=== PATIENT | male | born 1955 | race Caucasian/White ===

== ENCOUNTER 2017-10-15 06:54 | Inpatient (IN) | payer BC ==
[~2017-10-15 06:54] MED LIST: CEFAZOLIN 2 Gram 2 GM/50 ML BAG IVPB ONE; CELECOXIB 100 MG CAPSULE PO ONE; FAMOTIDINE 20MG TABLET PO ONE; MECLIZINE 25 MG TABLET PO ONE; METOCLOPRAMIDE 10 MG TABLET PO ONE; VANCOMYCIN HCL 1,000 MG in DEXTROSE 5 % IN WATER 250 ML IVPB ONE
[2017-10-15 08:26] LABS: ABO GROUP O; ANTIBODY SCREEN NEGATIVE (NEGATIVE); RH TYPE NEGATIVE
[2017-10-15] MEDS ORDERED: NALOXONE 0.4 MG/1 ML VIAL IVP PRN (10:42)
[2017-10-15] MEDS ORDERED: BISACODYL 10 MG SUPP RC PRN (10:42)
[2017-10-15] MEDS ORDERED: ACETAMINOPHEN W/ CODEINE 300MG/60MG TABLET PO PRN ×2 (10:42)
[2017-10-15] MEDS ORDERED: HYDROCODONE/APAP 10/325 TABLET PO PRN (10:42)
[2017-10-15] MEDS ORDERED: AL HYDROX/MAG HYDROX 30ML UD PO PRN (10:42)
[2017-10-15] MEDS ORDERED: HYDROMORPHONE HCL 2 MG/ML VIAL IM PRN (10:42)
[2017-10-15] MEDS ORDERED: TRAMADOL HCL 50 MG TABLET PO PRN (10:42)
[2017-10-15] MEDS ORDERED: DIPHENHYDRAMINE HCL 25 MG CAPSULE PO PRN (10:42)
[2017-10-15] MEDS ORDERED: KETOROLAC 30 MG/ML VIAL IVP PRN ×2 (10:42)
[2017-10-15] MEDS ORDERED: ONDANSETRON HCL IV 4 MG/2 ML VIAL IVP PRN (10:42)
[2017-10-15] MEDS ORDERED: ZOLPIDEM TARTRATE 5 MG TABLET PO PRN (10:42)
[2017-10-15] MEDS ORDERED: ACETAMINOPHEN 325 MG TAB PO PRN (10:42)
[2017-10-15] MEDS ORDERED: MAGNESIUM HYDROXIDE 30 ML UDC PO PRN (10:42)
[2017-10-15] MEDS ORDERED: PATIENT OWN MED: PROAIR HFA INH PRN (11:01)
[2017-10-15] MEDS ORDERED: FLU VAC QS 2017-18 (INPT, 6MO+) 60MCG/0.5ML IM ONE (12:09)
[2017-10-15] MEDS ORDERED: PNEUM 23-VAL ADULT IM ONE (12:09)
[2017-10-15] MEDS: POTASSIUM CHLORIDE/D5-0.9%NACL 20 MEQ/1,000 ML BAG IV SCH ×2 (12:58→21:08)
--- NOTE | 2017-10-15 14:51 | Rehab Evaluation ---
Patient Information - Patient Information Diagnosis: DJD L hip Ordered Treatment: PT Evaluate and Treat Status: Initial Evaluation Surgery: Yes (Total Hip Arthroplasty) Date of Surgery: 10/15/17 Past Medical/Surgical Hx: PAST MEDICAL/SURGICAL HISTORY Past Surgical History dupuytrens sx left hands; hernia Umbilical repair w mesh; colonoscopy; cardiac catheterization December 2016-no heart issues PMH - Respiratory Hx Respiratory Disorders Yes Hx Chronic Obstructive Yes Pulmonary Disease (COPD) Hx Dyspnea Yes: exertional Hx of SOB Yes PMH - Cardiovascular Hx Cardiovascular Disorders Yes Hx Cardiac Catheterization Yes: got dizzy at work sight-"I was dehydrated "- no heart issues Exercise Tolerance Fair PMH - Neuro Hx Neurological Disorders Yes Hx Dizziness Yes: was dehydrated Spring 2016 PMH - GI Hx Gastrointestinal Disorders Yes Hx Gastroesophageal Reflux Yes PMH - Hx Genitourinary Disorders No PMH - Endocrine Hx Endocrine Disorders No PMH - Musculoskeletal Hx Musculoskeletal Disorders Yes Hx Arthritis Yes: hands/hip PMH - Psych Hx Psychiatric Problems No PMH - Hematology/Oncology Hx Hematology/Oncology No Disorders Premorbid Status: Detail (The patient was prior to surgery independent with all mobility.) Social History: Detail (The patient states that he lives with his spouse in a single-story home with 2 steps to enter and 2 railings. The patient states that he has two bathrooms, one with a walk-in shower and a tub/shower combo, but was unsure which he was going to use. 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 The patient has his own two wheeled walker , and has a toilet riser for the bathroom.) Precautions: [place], Other (Total Hip Arthroplasty precautions and WBAT on left lower extremity) - Time With Patient Total Time Spent With Patient (Min): 30 Treatment Procedures: Detail (Gait Training) Subjective Information - Subjective Information Per Patient (The patient stated he was slightly light headed at the beginning of treatment.) Objective Data - Pain Pain Present: Yes Pain Intensity: 1 Pain Scale Used: Numeric (1 - 10) - Mental Status Patient Orientation: Oriented x3 - Visual Perception Appears within normal limits for therapeutic activities - ROM Within normal limits (Left Hip was within IRIS precautions) - Strength/Tone Within normal limits (L Hip was WFL as he could lift his leg to transfer back into bed) - Bed Mobility Needs Assist (Supine to sit - minumum assist Sit to Supine - Independent) - Transfers Independent (Sit to Stand - Independent Toilet Transfer - Required verbal cues to push up for toilet seat handles, and not use the walker) - Balance Balance Sitting: Good Balance Standing: Good (Patient was able to stand while don/doff underwear) - Sensation Intact - Gait Detail (WBAT on left - Ambulated with 2-wheeled walker for a distance of 37 feet with CGA for safety.) Therapy Assessment - Therapy Assessment Detail (The patient was independet with bed mobility, gait, and followed IRIS precautions well. The patient is expected to progress well with therapy.) Patient Education - Patient Education Teaching Topic: Precautions (IRIS precautions were reviewed and patient was able to recall precautions without cuing.) Response: Verbalize Understanding Teaching Method: Discussion Teaching Recipient: Patient Barriers To Learning: None Problem List - Problem List Physical Therapy Problem List: Detail (Non-ambulatory on stairs Decreased strength as to be expected s/p IRIS) Goals - Goals Physical Therapy Goals: 1) Supervision with 3 steps WBAT on left. 2) Independent with gait over level surfaces with 2 wheeled walker for household distances WBAT on left. 3) Independent with IRIS exercises as part of HEP. Prognosis - Prognosis Good Plan - Plan Physical Therapy Plan: PT 1-2x/day for gait training and instruction in HEP until inpatient PT goals are met.
--- NOTE | 2017-10-15 15:14 | Operative Note ---
DATE OF SURGERY: 10/15/17 PREOPERATIVE DIAGNOSIS: END-STAGE ARTHROSIS OF THE LEFT HIP. POSTOPERATIVE DIAGNOSIS: END-STAGE ARTHROSIS OF THE LEFT HIP. PROCEDURE: CEMENTLESS LEFT TOTAL HIP ARTHROPLASTY USING PEREZ-NEPHEW COMPONENTS WITH A SIZE 58 NO-HOLE REFLECTION CUP WITH A 32 MM DIAMETER, 35-DEGREE OFFSET LINER, A SIZE 15 CEMENTLESS [place] STEM STANDARD NECK LENGTH WITH A +0, 32 MM DIAMETER OXINIUM HEAD. STAFF SURGEON: DR. HORN. ANESTHESIA: SPINAL. PREPARATION: CHLORAPREP. INDIVIDUAL CONSIDERATION: NONE. PROCEDURE: The patient was taken to the Operating Room and placed supine on the operating room table. He had a successful induction of a spinal anesthetic. He was then placed on his side, left side up, and his left leg and hip were prepped and draped in the usual fashion. The patient had direct posterior approach to the hip. Sharp dissection was carried down through the skin and subcutaneous tissues. Small veins were coagulated with a Bovie. The tensor gluteal fascia was opened along the entire length of the incision and deep retractors were placed. Short external rotators were identified, piriformis fossa and removed exposing the posterior capsule. The posterior capsulectomy was performed. The hip was dislocated posteriorly. He had exposed bone throughout. Femoral neck cut was then made about a little above a fingerbreadth above the lesser troch with an oscillating saw. A rim capsulectomy was performed. Starting with a 47 mm reamer to medialize the medial wall, I reamed the introitus, which was 57 for a 58 cup. I slightly under -reamed to 56. I then impacted a size 58 no-hole reflection cup and 20 degrees of forward flexion and 40 degrees of abduction using the extra-articular alignment guide and bony landmarks. There was solid cementless fixation. After irrigation, the center cap screw was placed and then I impacted a 35-degree offset liner, a 32 mm diameter Highly Crosslink with the offset posteriorly and inferiorly and this gave excellent stable acetabular construct and this was packed off. The proximal femur was delivered into the wound and box cutting osteotome was used to remove proximal metaphyseal bone. Mid stem reaming was done to a size 15 and started feeling cortex between 13 and 14, and broached a 15. I dialed the anteversion at about 30 degrees, which followed it's natural anteversion angle, calcar reamed, and I could get it to reduce well with normal shuck and stability with a +0 standard offset neck. I had actually absolute stability, full anterior stability with full extension external rotation. I could flex him up maximally and internally rotate to 90 and the hip was still stable. I went ahead and removed the trial, irrigated everything and impacted a size 15 [place] stem standard neck length with solid cementless fixation and solid calcar contact. Again after irrigation and drying the [place] T[place], I impacted a +0, 32 mm diameter Oxinium head on the Sierra Taper the implant after irrigation reduced this in similar stability. Sciatic nerve was inspected and found to be completely intact. Hemostasis was obtained with the Bovie. The capsule was then closed with a running #2 Quill. The patient did receive a gram of Tranexamic Acid preoperatively. I mixed a gram of Tranexamic Acid with 30 mL of saline and placed this deep to the fascia. After the fascia was closed, the subcut was closed in layers with running #0 Quill, skin was closed with misael. I did infiltrate the skin with 0.75% Marcaine with Epinephrine and a sterile [place] compressive Aquacel-type dressing was applied. The patient tolerated the procedure well. Needle and sponge counts were correct. Estimated blood loss was minimal and he was taken back to Recovery in good condition. There were no complications. JOB NUMBER: [id number] MTDD
[2017-10-15] MEDS ORDERED: TRANEXAMIC ACID 1,000 MG/10 ML ML IV ONE (15:38)
[2017-10-15] MEDS ORDERED: BUPIVACAINE 0.75% W/EPI MPF 30ML VIAL IVP ONE (15:38)
[2017-10-15] MEDS: CEFAZOLIN 2 Gram 2 GM/50 ML BAG IVPB SCH (16:11)
[2017-10-15] MEDS: HYDROCODONE/APAP 10/325 TABLET PO PRN ×2 (17:36→22:01)
[2017-10-15] MEDS: DULERA INH SCH (19:40)
[2017-10-15] MEDS: DOCUSATE SODIUM 100 MG CAPSULE PO SCH (21:08)
[2017-10-15] MEDS ORDERED: PATIENT OWN MED: MONTELUKAST 10 MG PO SCH (22:00)
[2017-10-16] MEDS: CEFAZOLIN 2 Gram 2 GM/50 ML BAG IVPB SCH ×2 (00:34→09:23)
[2017-10-16] MEDS: DULERA INH SCH (05:51)
[2017-10-16] MEDS: HYDROCODONE/APAP 10/325 TABLET PO PRN ×3 (05:55→14:55)
[2017-10-16 06:34] LABS: HEMATOCRIT 41.4 % (42.0-52.0); HEMOGLOBIN 13.3 gm/dl (14.0-18.0)
[2017-10-16 06:47] LABS: BLOOD UREA NITROGEN 12 mg/dL (6-20); CREATININE 0.8 mg/dL (0.7-1.2); EST GLOMERULAR FILTRATION RATE > 60 mL/min; GLUCOSE,RANDOM 126 mg/dL (74-109)
[2017-10-16] MEDS ORDERED: PATIENT OWN MED: OMEPRAZOLE 20 MG PO SCH (07:00)
[2017-10-16] MEDS ORDERED: HYDROMORPHONE HCL 2 MG/ML VIAL IV ONE (08:32)
[2017-10-16] MEDS ORDERED: PROPOFOL 10 MG/ML VIAL IV ONE (08:32)
[2017-10-16] MEDS ORDERED: *PACU ONLY* KETAMINE HCL 10 MG/ML (20ML) VIAL IV ONE (08:32)
[2017-10-16] MEDS ORDERED: MIDAZOLAM HCL 2MG/2ML VIAL IV ONE (08:32)
[2017-10-16] MEDS ORDERED: KETOROLAC 30 MG/ML VIAL IVP ONE (08:32)
[2017-10-16] MEDS ORDERED: FENTANYL PF 100MCG/2ML VIAL IV ONE (08:32)
[2017-10-16] MEDS: DOCUSATE SODIUM 100 MG CAPSULE PO SCH (09:23)
[2017-10-16] MEDS: POTASSIUM CHLORIDE/D5-0.9%NACL 20 MEQ/1,000 ML BAG IV SCH ×2 (09:23→12:44)
[2017-10-16] MEDS ORDERED: RIVAROXABAN 10 MG TABLET PO SCH (10:00)
[2017-10-16] MEDS ORDERED: FERROUS SULFATE 325 MG TAB PO SCH (10:00)
--- NOTE | 2017-10-16 11:48 | Physical Therapy Tx Note ---
Physical Therapy Tx Note - Treatment Note Tolerated: Good Total Time Spent With Patient: 50 Physical Therapy Tx Note: Detail (The patient was in bed upon arrival. The patient was instructed in his HEP, which inlcuded quad sets, glut. sets, and heel slides while staying within his IRIS precautions. The patient went from supine to sit with verbal cuing for proper hand position to the bed, pushing up from the bed, and scooting in bed. The patient's sit to stand transfer required verbal cues to extend the leg out and maintain upright body position during the transfer. The patient ambulated for 54 ft x 2 with supervision and some verbal cues to push the walker, rather than lift with each step. The patient ascended and descended 3 stairs for verbal cues for proper gait technique for the proper lead extremity. The patient required some verbal cues for turning at the bottom of the stairs to avoid rotation of the hip. Upon returning to his room, the patient was independent from stand to sit. In moving from sit to supine, the patient required verbal cues for avoiding rotation of the hip while supine/ scooting from the edge to the middle of the bed. The patient was left in supine with his call light available, B IPC, cryo L hip, and nursing was notified of pt.'s status. Pt. denied nausea, SOB, and reported 4/10 pain at end of tx session.) Physical Therapy Problem List: Detail (Difficulty with bed transfer. Pt met all goals as initially established, does require assistance with bed mobility. Pt.' s was in the room and verbalized understanding of hip precautions and positioning of the involved lower extremity for safe transfer, and is capable of helping the pt. at home if needed.) Physical Therapy Goals: 1) Supervision with 3 steps WBAT on left. 2) Independent with gait over level surfaces with 2 wheeled walker for household distances WBAT on left. 3) Independent with IRIS exercises as part of HEP. Prognosis: Good Physical Therapy Plan: PT 1-2x/day for bed mobility/transfer training and instruction in HEP/precautions for safe D/C to home environment.
--- NOTE | 2017-10-16 13:16 | Rehab Evaluation ---
Patient Information - Patient Information Diagnosis: DJD L hip Ordered Treatment: OT Evaluate and Treat Status: Initial Evaluation Surgery: Yes (Total Hip Arthroplasty) Date of Surgery: 10/15/17 Past Medical/Surgical Hx: PAST MEDICAL/SURGICAL HISTORY Past Surgical History dupuytrens sx left hands; hernia Umbilical repair w mesh; colonoscopy; cardiac catheterization December 2016-no heart issues PMH - Respiratory Hx Respiratory Disorders Yes Hx Chronic Obstructive Yes Pulmonary Disease (COPD) Hx Dyspnea Yes: exertional Hx of SOB Yes PMH - Cardiovascular Hx Cardiovascular Disorders Yes Hx Cardiac Catheterization Yes: got dizzy at work sight-"I was dehydrated "- no heart issues Exercise Tolerance Fair PMH - Neuro Hx Neurological Disorders Yes Hx Dizziness Yes: was dehydrated Spring 2016 PMH - GI Hx Gastrointestinal Disorders Yes Hx Gastroesophageal Reflux Yes PMH - Hx Genitourinary Disorders No PMH - Endocrine Hx Endocrine Disorders No PMH - Musculoskeletal Hx Musculoskeletal Disorders Yes Hx Arthritis Yes: hands/hip PMH - Psych Hx Psychiatric Problems No PMH - Hematology/Oncology Hx Hematology/Oncology No Disorders Premorbid Status: Detail (The patient was prior to surgery independent with all I/ADL's.) Social History: Detail (The patient states that he lives with his spouse in a single-story home with 2 steps to enter and 2 railings. The patient states that he has two bathrooms, one with a walk-in shower and a tub/shower combo, but was unsure which he was going to use. The patient has his own two wheeled walker, and has a toilet riser for the bathroom.) Precautions: [place], Other (Total Hip Arthroplasty precautions and WBAT on left lower extremity) - Time With Patient Total Time Spent With Patient (Min): 30 Objective Data - Mental Status Patient Orientation: Oriented x3 - Visual Perception Appears within normal limits for therapeutic activities - ROM Within normal limits (BUE WNL) - Strength/Tone Within normal limits (BUE WNL 5/5 MMT) - Coordination Appears within normal limits for therapeutic activities - Bed Mobility Needs Assist (Pt. required min A from to move LLE during supine to sit EOB transition. Educ. was provided in use of sheet/blanket to lift leg for an adaptive strategy.) - Transfers Independent (Pt. Ind. in sit<>stand t/f from EOB to walker and compliant with hip precautions.) - Balance Balance Sitting: Good Balance Standing: Fair - Sensation Intact (Pt. reported he has "pre"-carpal tunnel that occurs occasionally. Educ. was provided in adaptive strategies (i.e. build up walker handles) to prevent CTS development. Lt touch in tact BUE fingertips.) - ADL's/IADL's Detail (Educ. was provided in adaptive dressing strategies and use of AE (hip kit). Pt. stated he will purchase greens tier and possibly sock aid from a store. Pt. has concerns about being able to perform self-care tasks at home, especially bathing. Alternative options and AE (i.e. shower chair, grab bars, HH shower head, or tub bench) were discussed. Pt. demo. ability to dress BLE using greens tier and complying to hip precautions with min VC.) Therapy Assessment - Therapy Assessment Detail (In-pt. OT services not recommended at this time. Pt. may benefit from an in-home OT evaluation to maximize safety and independence with self care skills, and potential environmental modification/AE for bathroom use. Pt.'s is supportive and helpful, but won't be available full-time (i.e. work). Pt. would benefit from a greens tier, sock aid, and long handled sponge to adhere to hip precautions during recovery period. Pt. demo. and verbalized understanding and is aware of where/how to obtain AE.) Patient Education - Patient Education Teaching Topic: Community Resources, Equipment Use, Precautions Response: Return Demonstration, Verbalize Understanding Teaching Method: Discussion, Demonstration Teaching Recipient: Patient, Family () Barriers To Learning: None Problem List - Problem List Physical Therapy Problem List: Detail (Difficulty with bed transfer. Pt met all goals as initially established, does require assistance with bed mobility. Pt.' s was in the room and verbalized understanding of hip precautions and positioning of the involved lower extremity for safe transfer, and is capable of helping the pt. at home if needed.) Goals - Goals Physical Therapy Goals: 1) Supervision with 3 steps WBAT on left. 2) Independent with gait over level surfaces with 2 wheeled walker for household distances WBAT on left. 3) Independent with IRIS exercises as part of HEP. Prognosis - Prognosis Good Plan - Plan Physical Therapy Plan: PT 1-2x/day for bed mobility/transfer training and instruction in HEP/precautions for safe D/C to home environment. Occupational Therapy Plan: D/C from OT services at this time. Educ. was provided to call rehab dept. if Q's/concerns.
--- NOTE | 2017-10-16 14:52 | Physical Therapy Tx Note ---
Physical Therapy Tx Note - Treatment Note Tolerated: Good Total Time Spent With Patient: 15 Physical Therapy Tx Note: Detail (Patient states doing much better this afternoon. Patient was supine in bed upon BLADE GRADER OPERATOR arrival. Patient transferred supine to sit independently. Patient transferred sit to and from stand x2 independently. Patient ambulated 13 feet x2 with wheeled walker SBA x1. BLADE GRADER OPERATOR discussed car transfer with . Patients and patient reports good understanding of car transfer. Patient reports good understanding of HEP. Patient tolerated treatment well. Patient was left seated in chair with call light within reach. Patient has passed all inpatient physical therapy goals. Patient discharged from inpatient physical therapy at this time.) Physical Therapy Problem List: Detail (Difficulty with bed transfer. Pt met all goals as initially established, does require assistance with bed mobility. Pt.' s was in the room and verbalized understanding of hip precautions and positioning of the involved lower extremity for safe transfer, and is capable of helping the pt. at home if needed.) Physical Therapy Goals: 1) Supervision with 3 steps WBAT on left. 2) Independent with gait over level surfaces with 2 wheeled walker for household distances WBAT on left. 3) Independent with IRIS exercises as part of HEP. Prognosis: Good Physical Therapy Plan: Patient discharged from inpatient physical therapy at this time, as patient has passed all inpatient physical therapy goals.
--- NOTE | 2017-10-16 19:14 | Discharge Summary ---
DATE OF ADMISSION: 10/15/2017 DATE OF DISCHARGE: 10/16/2017 DATE OF SURGERY: 10/15/2017 HISTORY: Mr. Carty is a delightful 61-year-old male who presents with end-stage arthrosis of his left hip. He was admitted after a left total hip arthroplasty. Postoperatively, he did well. His hospital course was unremarkable. His discharge hemoglobin was 13.3. He did not require transfusion. DISCHARGE INSTRUCTIONS: The plan is to discharge him to home in the care of his family. Home PT and Visiting Nurses have been arranged. He will be given Burr for pain and Xarelto for DVT prophylaxis and he will follow-up in my office in four weeks. FINAL DIAGNOSIS/PRIMARY DIAGNOSIS: END-STAGE ARTHROSIS OF THE LEFT HIP. OPERATIONS AND PROCEDURES: CEMENTLESS LEFT TOTAL HIP ARTHROPLASTY. DISCHARGE CONDITION: GOOD. JOB NUMBER: [id number] MTDD
== END 2017-10-16 17:17 | disposition home health service (06) | DRG 470 ==
LOC: MEDSURG 06:54
PROVIDERS: ADMIT Orthopaedic Surgery; ATTEND Orthopaedic Surgery
PROC: 0SRB06A Replacement of Left Hip Joint with Oxidized Zirconium on Polyethylene Synthetic Substitute, Uncemented, Open Approach (ICD-10-PCS; principal; 2017-10-15 09:00)
DX: M16.12 Unilateral primary osteoarthritis, left hip (principal); Z87.891 Personal history of nicotine dependence
CPT/HCPCS: 80048; 85014; 85018; 86850; 86900; 86901; 94640; 97110; 97116; 97165; 97530; J1885; J2405; J3480; J3490